=== PATIENT | male | born 1960 ===

== ENCOUNTER 2017-11-24 08:04 | Day surgery (SDC) | payer OTHER ==
--- NOTE | 2017-11-24 07:10 | PCM.PREANE ---
Preanesthetic Assessment - Anesthesia/Transfusion/Family Hx Anesthesia History: Prior Anesthesia Without Reaction Transfusion History: No Prior Transfusion(s) Intubation History: Unknown - Review of Systems General: No Symptoms (Recent acute bronchitis resolved and improved with antibiotics.) Pulmonary: No Symptoms (smoker 1 PPD times 30 years/undiagnosed KARIN ??/Acute bronchitis) Cardiovascular: No Symptoms (History of HTN, BP medication recently increased with blood pressure parameters improved.) Neurological: No Symptoms (C3-4, C5-6 fusion) Other: Reports: Sinus Problem (allergic rhinits) - Physical Assessment NPO Status Date: 11/23/17 Height: 1.88 m Mental Status: Alert & Oriented x3 - Lab Values: Laboratory Last Values MRSA (PCR) Negative 11/16/17 15:19 Labs reviewed and noted and within acceptable ranges to proceed with scheduled procedure. - Imaging/EKG Impressions: CXR: nothing acute seen. EKG: - Allergies Allergies/Adverse Reactions: Allergies Allergy/AdvReac Type Severity Reaction Status Date / Time Sulfa (Sulfonamide Allergy Other Verified 11/23/17 14:27 Antibiotics) - Anesthesia Plan Pre-Op Medication Ordered: None - Acknowledgements Anesthesia Type Planned: General Anesthesia (Right interscalene block under US guidance for post operative pain control requested by Dr. 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 Musculoskeletal History: Reports: Other (See Below) Other Musculoskeletal History: right degenerative labral tear and tendonitis Neurological History: Reports: None Psychiatric History: Reports: Other (See Below) Other Psychiatric History: fatigue Endocrine/Metabolic History: Reports: Obesity/BMI 30+, Vitamin D Deficiency Hematologic History: Reports: None Immunologic History: Reports: None Oncologic (Cancer) History: Reports: None Dermatologic History: Reports: None - Past Surgical History Head Surgeries/Procedures: HEENT Surgical History: Reports: Tonsillectomy Cardiovascular Surgical History: Reports: None Respiratory Surgical History: Reports: None GI Surgical History: Reports: Colonoscopy Female Surgical History: Reports: None Male Surgical History: Reports: Vasectomy Neurological Surgical History: Reports: C-Spine, Discectomy, Spinal Fusion Oncologic Surgical History: Reports: None Dermatological Surgical History: Reports: None - SUBSTANCE USE Smoking Status *Q: Current Every Day Smoker Tobacco Use Within Last Twelve Months: Cigarettes, Snuff/Dip Recreational Drug Use History: Yes Recreational Drug Type: Reports: Marijuana/Hashish - HOME MEDS Home Medications: Home Meds Fluticasone Propionate [Flovent HFA 110 MCG] 1 - 2 puff INH Q4H PRN 11/23/17 [ History] Fluticasone Propionate [Flovent HFA 110 MCG] 1 - 2 puff INH Q4H PRN 11/23/17 [ History] Hydrochlorothiazide 25 mg PO DAILY 11/23/17 [History] Ibuprofen 800 mg PO TID PRN 11/23/17 [History] Lisinopril 20 mg PO DAILY 11/23/17 [History] - CURRENT (IN HOUSE) MEDS Current Meds: Current Medications Lactated Ringer's (Ringers, Lactated) 1,000 mls @ 125 mls/hr IV ASDIRECTED TOÑA Lidocaine/Sodium Bicarbonate (Buffered Lidocaine 1% In Ns 8.4%) 0.25 ml IV ONETIME PRN PRN Reason: Prior to IV Start Sodium Chloride (Saline Flush) 10 ml FLUSH ASDIRECTED PRN PRN Reason: Keep Vein Open Discontinued Medications Epinephrine HCl (Adrenalin) Confirm Administered Dose 1 mg .ROUTE .STK-MED ONE Stop: 11/24/17 05:44 Lidocaine HCl (Xylocaine-Mpf 1%) Confirm Administered Dose 4 mls @ as directed .ROUTE .STK-MED ONE Stop: 11/24/17 05:44 Ropivacaine (Naropin 0.5%) Confirm Administered Dose 30 ml .ROUTE .STK-MED ONE Stop: 11/24/17 05:45
[~2017-11-24 08:04] MED LIST: EPINEPHrine 1 MG/ML 30 ML MDV ONE; EPINEPHrine 1 MG/ML SDV ONE; Lactated Ringers 1,000 ML IV SCH; Lidocaine 1% 4 ML ONE; Lidocaine 1%/Sod Bicarbonate in NS 8.4% 1 ML Syringe IV PRN; Ropivacaine 0.5% 5 MG/ML 30 ML SDV ONE; Sodium Chloride 0.9% 10 ML Syringe FLUSH PRN
[2017-11-24] MEDS ORDERED: Bupivacaine 0.25% 30 ML SDV ONE (08:23)
--- NOTE | 2017-11-24 08:37 | PCM.PREANE ---
Preanesthetic Assessment - Anesthesia/Transfusion/Family Hx Anesthesia History: Prior Anesthesia Without Reaction (slow wake-up) Family History of Anesthesia Reaction: No Transfusion History: No Prior Transfusion(s) Intubation History: Unknown - Review of Systems General: No Symptoms Pulmonary: No Symptoms Cardiovascular: No Symptoms Gastrointestinal: No Symptoms Neurological: Numbness (righrt hand) Other: Reports: Sinus Problem (allergic rhinits) - Physical Assessment NPO Status Date: 11/23/17 NPO Status Time: 00:00 Pulse: 74 O2 Sat by Pulse Oximetry: 96 Respiratory Rate: 18 Blood Pressure: 143/90 Temperature: 37.2 C Height: 1.88 m Weight: 111.2 kg ASA Class: 3 Mental Status: Alert & Oriented x3 Airway Class: Mallampati = 3 Dentition: Reports: Broken Tooth/Teeth (lower right "teeth in bad shape") Thyro-Mental Finger Breadths: 1 Mouth Opening Finger Breadths: 1 ROM/Head Extension: Limited/Partial (fuse 3-4-5-6 cervical) Lungs: Clear to Auscultation, Normal Respiratory Effort Cardiovascular: Regular Rate, Regular Rhythm - Lab Values: Laboratory Last Values MRSA (PCR) Negative 11/16/17 15:19 - Imaging/EKG Impressions: EKG SR with RBBB On chart - Allergies Allergies/Adverse Reactions: Allergies Allergy/AdvReac Type Severity Reaction Status Date / Time Sulfa (Sulfonamide Allergy Other Verified 11/23/17 14:27 Antibiotics) - Anesthesia Plan Pre-Op Medication Ordered: None - Acknowledgements Anesthesia Type Planned: General Anesthesia, Regional Block (interscalene block for post-op pain control) Pt an Appropriate Candidate for the Planned Anesthesia: Yes Alternatives and Risks of Anesthesia Discussed w Pt/Guardian: Yes Pt/Guardian Understands and Agrees with Anesthesia Plan: Yes PreAnesthesia Questionnaire HEENT History: Reports: Allergic Rhinitis, Impaired Vision Cardiovascular History: Reports: Hypertension Respiratory History: Reports: Bronchitis, Recurrent, Sleep Apnea Gastrointestinal History: Reports: None Genitourinary History: Reports: Other (See Below) Other Genitourinary History: frequency 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 Musculoskeletal History: Reports: Other (See Below) Other Musculoskeletal History: right degenerative labral tear and tendonitis Neurological History: Reports: None Psychiatric History: Reports: Other (See Below) Other Psychiatric History: fatigue Endocrine/Metabolic History: Reports: Obesity/BMI 30+, Vitamin D Deficiency Hematologic History: Reports: None Immunologic History: Reports: None Oncologic (Cancer) History: Reports: None Dermatologic History: Reports: None - Past Surgical History Head Surgeries/Procedures: HEENT Surgical History: Reports: Tonsillectomy Cardiovascular Surgical History: Reports: None Respiratory Surgical History: Reports: None GI Surgical History: Reports: Colonoscopy Female Surgical History: Reports: None Male Surgical History: Reports: Vasectomy Neurological Surgical History: Reports: C-Spine, Discectomy, Spinal Fusion Oncologic Surgical History: Reports: None Dermatological Surgical History: Reports: None - SUBSTANCE USE Smoking Status *Q: Current Every Day Smoker Tobacco Use Within Last Twelve Months: Cigarettes, Snuff/Dip Second Hand Smoke Exposure: No Days Per Week of Alcohol Use: 1 Number of Drinks Per Day: 0 Total Drinks Per Week: 0 Recreational Drug Use History: Yes Recreational Drug Type: Reports: Marijuana/Hashish - HOME MEDS Home Medications: Home Meds Fluticasone Propionate [Flovent HFA 110 MCG] 1 - 2 puff INH Q4H PRN 11/23/17 [ History] Fluticasone Propionate [Flovent HFA 110 MCG] 1 - 2 puff INH Q4H PRN 11/23/17 [ History] Hydrochlorothiazide 25 mg PO DAILY 11/23/17 [History] Ibuprofen 800 mg PO TID PRN 11/23/17 [History] Lisinopril 20 mg PO DAILY 11/23/17 [History] Cyclobenzaprine [Flexeril] 10 mg PO Q8H PRN #40 tablet 11/24/17 [Rx] Hydrocodone/Acetaminophen [Bolivar 5-325 Tablet] 1 - 2 each PO Q6H PRN #40 tablet 11/24/17 [Rx] - CURRENT (IN HOUSE) MEDS Current Meds: Current Medications Lactated Ringer's (Ringers, Lactated) 1,000 mls @ 125 mls/hr IV ASDIRECTED TOÑA Lidocaine/Sodium Bicarbonate (Buffered Lidocaine 1% In Ns 8.4%) 0.25 ml IV ONETIME PRN PRN Reason: Prior to IV Start Sodium Chloride (Saline Flush) 10 ml FLUSH ASDIRECTED PRN PRN Reason: Keep Vein Open Discontinued Medications Epinephrine HCl (Adrenalin) Confirm Administered Dose 1 mg .ROUTE .STK-MED ONE Stop: 11/24/17 05:44 Epinephrine HCl (Adrenalin) 3 mg .XX ONETIME ONE Stop: 11/24/17 07:31 Epinephrine HCl (Adrenalin) 3 mg .XX ONETIME ONE Stop: 11/24/17 07:31 Lidocaine HCl (Xylocaine-Mpf 1%) Confirm Administered Dose 4 mls @ as directed .ROUTE .STK-MED ONE Stop: 11/24/17 05:44 Ropivacaine (Naropin 0.5%) Confirm Administered Dose 30 ml .ROUTE .STK-MED ONE Stop: 11/24/17 05:45
[2017-11-24] MEDS ORDERED: Albuterol 0.083% 2.5 MG/3 ML Neb Soln NEB ONE (08:57)
[2017-11-24] MEDS ORDERED: Rocuronium 50 MG/5 ML Vial ONE (09:10)
[2017-11-24] MEDS ORDERED: Midazolam 1 MG/ML 2 ML SDV ONE (09:10)
[2017-11-24] MEDS ORDERED: fentaNYL 250 MCG/5 ML SDV ONE (09:10)
[2017-11-24] MEDS ORDERED: Propofol 200 MG/20 ML SDV ONE (09:10)
[2017-11-24] MEDS ORDERED: Ondansetron 4 MG/2 ML SDV ONE (09:10)
[2017-11-24] MEDS ORDERED: Lidocaine 1% 4 ML ONE (09:11)
[2017-11-24] MEDS ORDERED: ceFAZolin 1 GM Vial ONE (09:11)
[2017-11-24] MEDS ORDERED: Lactated Ringers 1,000 ML ONE ×2 (10:33→11:49)
[2017-11-24] MEDS ORDERED: Succinylcholine/Normal Saline 100 MG/5 ML Syringe ONE (10:50)
--- NOTE | 2017-11-24 10:55 | PCM.SN ---
- Free Text/Narrative Note: Anesthesia Note: (Interscalene block note) (Dr. Sam present for the block) Date: 11/24/2017 Time Out: 09 Start: 915 Stop: 939 Surgical Procedure: Right Shoulder Video Arthroscopy with Rotator Cuff Repair, Subacromial Decompression. Diagnosis: Right Shoulder Rotator Cuff Tear Current Procedure: Right interscalene block under US guidance for postoperative pain control requested by Dr. Garcia. Patient chart reviewed, risk/benefits discussed with patient, consent obtained. Patient positioned supine, monitors/alarms on, oxygen placed via nasal cannula at 2 LPM. IV sedation administered: Versed 2mg IV @ 0916 Fentanyl 50 mcg IV @ 0916 Right shoulder prepped with two chloropreps. Sterile drapes placed with aseptic technique noted. Under US guidance, right subclavian artery visualized along with the right brachial plexus. Plexus followed up to C6 cricoid level, and area localized with 2mls of 1% lidocaine. 22gauge 2 inch stimiplex needle advanced under US with 0.5mV with stimulation of biceps noted. Good stimulation noted with decreased voltage and absent at 0.2mVs. 1ml of Normal Saline injected with loss of stimulation noted to confirm needle not placed intraneurally. Incremental dosing of 5mls with negative aspiration noted prior to each injection of 0.5% ropivacaine with 1:200,000 epinephrine. Total volume=25mls. Vital Signs: 0916 HR: 87 RR: 12 BP: 141/80 Spo2: 94% on 2 LPM nasal cannula 0921 HR: 83 RR: 12 BP: 129/77 Spo2: 94% on 2LPM nasal cannula 0927 HR: 81 RR: 12 BP: 124/71 Spo2: 95% on 2 LPM nasal cannula
[2017-11-24] MEDS ORDERED: fentaNYL 100 MCG/2 ML SDV IVPUSH PRN (11:51)
--- NOTE | 2017-11-24 11:54 | PCM.POSTAN ---
POST ANESTHESIA ASSESSMENT - MENTAL STATUS Mental Status: Alert, Oriented - VITAL SIGNS Pulse Rate: 94 SaO2: 94 Resp Rate: 13 Blood Pressure: 150/91 Temperature: 37.4 C - RESPIRATORY Respiratory Status: Respiratory Rate WNL, Airway Patent, O2 Saturation Stable, Supplemental Oxygen - CARDIOVASCULAR CV Status: Pulse Rate WNL, Blood Pressure Stable - GASTROINTESTINAL GI Status: No Symptoms - PAIN Pain Score: 0 - POST OP HYDRATION Hydration Status: Adequate & Stable - OBSERVATIONS Free Text/Narrative:: no anesthesia complications noted
[2017-11-24 12:24] VITALS: BP 135/82
--- NOTE | 2017-11-24 13:32 | PCM48HPAN ---
Post Anesthesia Note - EVALUATION WITHIN 48HRS OF ANESTHETIC Vital Signs in Normal Range: Yes Patient Participated in Evaluation: Yes Respiratory Function Stable: Yes Airway Patent: Yes Cardiovascular Function Stable: Yes Hydration Status Stable: Yes Pain Control Satisfactory: Yes Nausea and Vomiting Control Satisfactory: Yes Mental Status Recovered: Yes - COMMENTS/OBSERVATIONS Free Text/Narrative:: no anesthesia complications noted. Pt educated on mass found at the base of uvula when intubating Talked with ex Jessica and answered all her questions.
--- NOTE | 2017-11-29 05:30 | OR ---
DATE OF OPERATION: 11/24/2017 SURGEON: Rodolfo Garcia MD OPERATION PERFORMED: Right shoulder video arthroscopy with subacromial decompression and an extensive debridement. PREOPERATIVE DIAGNOSIS: Possible right shoulder rotator cuff tear with impingement. POSTOPERATIVE DIAGNOSIS: Possible right shoulder rotator cuff tear with impingement. ESTIMATED BLOOD LOSS: Less than 5 mL. ANESTHESIOLOGIST: Janene Crowell CRNA. ANESTHESIA: Interscalene block with general endotracheal intubation. COMPLICATIONS: None. CONDITION: Stable. DESCRIPTION OF PROCEDURE: The patient was identified in the preoperative holding area. Proper site was marked and identified by the surgeon. The patient was taken back to the operating theater where after adequate anesthesia, the patient's right shoulder was then sterilely prepped and draped in the usual sterile fashion. OR time-out was performed. The patient received 2 g IV Ancef, 15 pounds of traction was then applied to the right upper extremity. Standard posterior incision was made. Scope trocar was introduced into the glenohumeral joint. At this time, the patient had some minor amount of fraying of the labrum. The undersurface of the rotator cuff showed no significant tears. At this time, anterior portal was then created and debridement was done of the synovitic tissue. Biceps tendon was intact and showed no signs of tearing, subscapularis tendon was intact. At this time, the scope was removed and placed in subacromial space. At this time, the patient was noted to have a significantly thickened bursa with a large amount of erythema. At this time, a lateral portal was created and an extensive debridement was done of the subacromial space and the bursa. Once this was completed, the patient was noted to have a type 3 acromion and an acromioplasty was performed back down to a smooth type 1 acromion. The rotator cuff was then probed and showed no signs of rotator cuff tear at this time on the bursal side as well. Excess saline was drained from the shoulder. 3-0 nylon simple suture was used for closure of the skin. The patient tolerated the procedure well and sent to PACU in stable condition. MMODAL /[id number]
== END 2017-11-24 12:41 | disposition home or self-care (01) ==
LOC: JD.SDS 08:04
PROVIDERS: ATTEND Orthopaedic Surgery
DX: M25.811 Other specified joint disorders, right shoulder (principal); M24.111 Other articular cartilage disorders, right shoulder; I10 Essential (primary) hypertension; G47.33 Obstructive sleep apnea (adult) (pediatric); E55.9 Vitamin D deficiency, unspecified; Z88.2 Allergy status to sulfonamides; Z79.899 Other long term (current) drug therapy; F17.210 Nicotine dependence, cigarettes, uncomplicated
CPT/HCPCS: 29823; 29826; 64415; 87641; 94640; J0171; J0330; J0690; J2250; J2405; J2795; J3010; J3490; J7120; 01630; J2001; J2704